=== PATIENT | female | born 1950 | race African-American/Black ===

== ENCOUNTER 2017-05-07 13:50 | Inpatient (IN) ==
[~2017-05-07 13:50] MED LIST: ACETAMINOPHEN 325 MG TABLET PO PRN; DEXTROSE 50% 25 GM/50 ML SYRINGE IV PRN; DOCUSATE SODIUM 100 MG CAPSULE PO PRN; GLUCAGON 1 MG VIAL IM PRN; ONDANSETRON 4 MG/2 ML VIAL IV PRN
--- NOTE | 2017-05-07 15:21 | XRay Report ---
Portable chest Date: 05/07/2017 Clinical history: Shortness of breath Comparison: 02/05/2012 Technique: Portable AP sitting chest Findings: The heart is normal in size cardiac fat pads. The lungs and mediastinum are stable in appearance. Degenerative changes are noted. Impression: No acute cardiopulmonary pathology identified. PROCEDURE INTERPRETED AT [facility] DEPARTMENT OF RADIOLOGY Final Report Signed by: Dr. Sahra Carson
[2017-05-07 15:40] LABS: Basophils % 0.2 % (0.0-0.8); Eosinophils # 0.1 10*3/uL (0.0-0.87); Eosinophils % 0.5 % (0.00-10.9); Hematocrit 39.5 VOL% (35.7-47.0); Hemoglobin 13.3 GM/DL (12.0-16.0); Immature Granulocytes % 0.5 %; Immature Granulocytes Absolute 0.08 #; Lymphocytes % 18.8 % (21.3-54.2); Mean Corpuscular HGB Conc 33.7 GM/DL (32-36); Mean Corpuscular Hemoglobin 32 PG (27-34); Mean Platelet Volume 9.6 FL (9.6-12.0); Monocytes # 0.8 10*3/uL (0.11-0.8); Monocytes % 5.2 % (1.7-12.7); Neutrophils % 74.8 % (38.7-73.9); Platelet Count 332 T/CUMM (130-400); Red Blood Count 4.16 MC/CUMM (3.8-5.5); Red Cell Distribution Width 13.5 % (9.3-17.3); White Blood Count 16.1 T/CUMM (4-12)
[2017-05-07 16:05] LABS: Alanine Aminotransferase 17 U/L (13-56); Albumin 3.4 G/DL (3.4-5.0); Alkaline Phosphatase 146 U/L (45-117); Aspartate Amino Transferase 10 U/L (0-37); Bilirubin,Total < 0.39 MG/DL (0.2-1.0); Blood Urea Nitrogen 31 MG/DL (7-18); Calcium 10.4 MG/DL (8.5-10.1); Glucose 340 MG/DL (74-106); Magnesium 2.5 MG/DL (1.8-2.4); Phosphorous 2.9 MG/DL (2.5-4.9); Potassium 3.9 MMOL/L (3.5-5.1); Sodium 136 MMOL/L (136-145); Total Protein 7.2 G/DL (6.4-8.3)
[2017-05-07] MEDS: SODIUM CHLORIDE 0.9% 1,000 ML IV SCH (16:13)
--- NOTE | 2017-05-07 17:44 | Hospitalist History & Physical ---
Assessment and Plan - Time spent with patient Time spent with patient: Greater than 30 minutes (1) Leukocytosis Status: Acute Assessment and plan: Patient has a leukocytosis. There is no fever or symptomatology to suggest infection at this time. Urinalysis currently pending. Chest x-ray is clear. Will await further data before making a decision on antibiotic therapy if needed. Will otherwise hydrate overnight and follow-up CBC in the a.m. Current Visit: Yes (2) Acute kidney injury Status: Acute Assessment and plan: Patient reportedly has acute kidney injury. I am unclear as to what her baseline is. Will avoid any nephrotoxic agents or insults. Will hydrate overnight and follow-up creatinine in the a.m. Current Visit: Yes (3) Diabetes mellitus Status: Chronic Assessment and plan: We will resume her home medical regimen with Accu-Cheks and sliding scale insulin. Current Visit: Yes Qualifiers: Diabetes mellitus type: type 2 (4) Foot fracture, right Status: Acute Assessment and plan: Continue pain control, elevation, fracture shoe as prescribed in the emergency department with outpatient follow-up with her primary care provider. Current Visit: No (5) Hypertension Status: Chronic Assessment and plan: Patient has a history of hypertension. She states her antihypertensive therapy was discontinued. She is currently hemodynamically stable. We will continue to follow. Current Visit: Yes Qualifiers: Hypertension type: essential hypertension Qualified Code(s): I10 - Essential (primary) hypertension History of Present Illness Chief complaint: Foot pain, high white count, acute kidney injury History of present illness: Ms. Rousseau is a 66 year old -[place] female who fell and was seen in the emergency department yesterday and noted to have a right distal metatarsal fracture. She was discharged home and told to follow-up with her primary care provider. She saw Dr. Marquez in the office today and apparently had a leukocytosis and acute kidney injury and was referred to the hospitalist service for admission. She states that she had had increasing falls and dizziness with standing. She denies any fever, chills, chest pain, shortness breath, nausea, vomiting, diarrhea, constipation, melena, hematochezia, hematemesis, dysuria, hematuria, urinary frequency urgency incontinence, seizure , syncope. She states that Dr. Marquez stopped her blood pressure pill today. She denies any other [id number] medications including nonsteroidal anti- inflammatory drugs. 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 Kranthi Rueda) Endocrine: History of: Diabetes Mellitus (NIDDM) Gastrointestinal: History of: GERD, GI Problems (hital hernia up so high close to heart, cant have surgery) - Surgical History Neurologic Surgeries: Surgical HX of: Cerebral Hemorrhage (AV malformtion with surgery [place] [address]ranthi Rueda) Abdominal Surgeries: Surgical HX of: Cholecystectomy Patient denies: Hernia Repair - Family History Family History: Reports;: Family Diabetes, Family Heart Disease (grandmother) Denies;: Family Cancer - Social History Smoking Status: Never smoker Frequency of Alcohol Use: None Type of Drug Use: None 12 point system: reviewed and no additional remarkable complaints except as stated Exam - Constitutional Vitals: Period Temp Pulse Resp BP Sys/Lucas Pulse Ox Last 24 Hr 97.3 F 102 18 129/78 98-98 General appearance: no acute distress - Head Head exam: Present: normocephalic, atraumatic - Eye Eye exam: Present: EOMI Pupils: Present: ROBERT - ENT ENT exam: Present: normal exam, normal oropharynx - Neck Neck exam: Present: normal inspection. Absent: lymphadenopathy, meningismus, tenderness, thyromegaly - Respiratory Respiratory exam: Present: clear to auscultation bilaterally. Absent: rales, rhonchi, wheezes - Cardiovascular Cardiovascular exam: Present: regular rate and rhythm, tachycardia. Absent: gallop, JVD, systolic murmur - GI/Abdominal GI/Abdominal exam: Present: normal bowel sounds, soft. Absent: mass, organomegaly, tenderness, rebound - Extremities Exam Extremities exam: Present: normal capillary refill, other (Tender swollen right foot). Absent: calf tenderness, edema - Back Exam Back exam: Present: normal inspection - Neurological Exam Neurological exam: Present: alert, oriented X3, CN II-XII intact. Absent: motor sensory deficit - Psychiatric Psychiatric exam: Present: normal affect, normal mood. Absent: agitated, anxious - Skin Skin exam: Present: warm, dry. Absent: erythema, rash Results - Labs CBC & BMP: 05/07/17 15:25 05/07/17 15:25 Lab Results: I have reviewed the past 24 hour labs - EKG EKG shows: tachycardia, sinus rhythm - Diagnostic Findings Procedure: Chest x-ray: report reviewed by me
[2017-05-07] MEDS: INSULIN LISPRO 100 UNIT/ML SUBCUT SCH (17:53)
[2017-05-07 20:15] LABS: Apearance,Urine CLEAR (Clear); Bacteria,Urine Occasional /HPF (Few); Bilirubin,Urine Negative (Negative); Blood, Urine Negative (Negative); Glucose,Urine (UA) >=500 mg/dL (Negative); Ketones,Urine 5 mg/dL (Negative); Mucus,Urine Occasional /LPF (Occasional); Nitrite,Urine Negative (Negative); Protein,Urine Negative; RBC,Urine 1 /HPF (0-4); Squamous Epithelial Cell,Urine Occasional /HPF (0-10); Urine Color Yellow (Yellow); Urine Specific Gravity 1.025 (1.001-1.035); Urine Urobilinogen < 2.0 EU/DL (0.2-1.0); WBC,Urine 4 /HPF (0-6)
[2017-05-07] MEDS: AMITRIPTYLINE 75 MG TABLET PO SCH (22:00)
[2017-05-07] MEDS: INSULIN GLARGINE 100 UNIT/ML SUBCUT SCH (22:00)
[2017-05-08] MEDS: INSULIN LISPRO 100 UNIT/ML SUBCUT SCH ×7 (01:41→18:00)
[2017-05-08 07:19] LABS: Basophils % 0.3 % (0.0-0.8); Eosinophils # 0.3 10*3/uL (0.0-0.87); Eosinophils % 1.9 % (0.00-10.9); Hemoglobin 11.5 GM/DL (12.0-16.0); Immature Granulocytes % 0.4 %; Immature Granulocytes Absolute 0.05 #; Lymphocytes # 3.7 10*3/uL (1.4-4.0); Lymphocytes % 28.6 % (21.3-54.2); Mean Corpuscular HGB Conc 32.9 GM/DL (32-36); Mean Corpuscular Hemoglobin 31 PG (27-34); Mean Corpuscular Volume 95.1 FL (87-102); Mean Platelet Volume 9.8 FL (9.6-12.0); Monocytes # 0.9 10*3/uL (0.11-0.8); Neutrophils # 7.9 10*3/uL (1.4-7.4); Neutrophils % 61.8 % (38.7-73.9); Platelet Count 285 T/CUMM (130-400); Red Blood Count 3.68 MC/CUMM (3.8-5.5); Red Cell Distribution Width 13.4 % (9.3-17.3); White Blood Count 12.9 T/CUMM (4-12)
[2017-05-08 07:46] LABS: Calcium 8.7 MG/DL (8.5-10.1); Osmolality,Calculated 289.1 MOS/KG (273-304); Potassium 3.9 MMOL/L (3.5-5.1)
--- NOTE | 2017-05-08 08:09 | XRay Report ---
XR chest 1V portable Indication: COPD Comparison: 07 May 2017 Findings: The heart and mediastinum are normal in size and configuration. The pulmonary vascularity is normal in caliber. No lung infiltrates, effusions, pneumothorax or other abnormality is demonstrated. Impression: No acute cardiopulmonary findings. PROCEDURE INTERPRETED AT [facility] [place] DEPARTMENT OF RADIOLOGY Final Report Signed by: Dr. Dm Ruano
[2017-05-08] MEDS: PANTOPRAZOLE 40 MG TABLET PO SCH (10:22)
--- NOTE | 2017-05-08 12:33 | Case Mgmt Physician Query Form ---
TB Signs and Symptoms Screening ([place]) INSTRUCTIONS: To be completed annually on residents/staff with a significant Tuberculin Skin Test (TST) upon admission/hire or a prior significant TST. To be completed on all staff at hire. Please respond to each listed symptom with an (X) in either the "YES" or "NO" box. Do you currently have any of the following symptoms: YES NO ( ) (x ) A cough If yes, is it: ( ) Productive ( ) Non- productive ( ) x( ) Hemoptysis (spitting up blood) ( ) (x ) Chest pains ( ) (x ) Weight Loss ( ) (x ) Fever ( ) (x ) Night Sweats ( ) (x ) Weakness ( ) (x ) Loss of Appetite ( ) (x ) Difficulty Breathing If you answered YES" to any of the above questions, how long have symptoms been present? Comments: EDGARD
[2017-05-08] MEDS ORDERED: TUBERCULIN SKIN TEST 0.1 ML SYRINGE INTRADERM ONE (12:48)
--- NOTE | 2017-05-08 14:07 | Hospitalist Progress Note ---
Assessment and Plan (1) Leukocytosis Status: Acute Assessment and plan: There is no fever or symptomatology to suggest infection at this time. Follow UC and BC Current Visit: Yes (2) Acute kidney injury Status: Acute Assessment and plan: continue with IVF, bmp in am avoid nephrotoxics Current Visit: Yes (3) Diabetes mellitus Status: Chronic Assessment and plan: [id number] Continue current regime Current Visit: Yes Qualifiers: Diabetes mellitus type: type 2 (4) Foot fracture, right Status: Acute Assessment and plan: Continue pain control, elevation, fracture shoe as prescribed in the emergency department with outpatient follow-up with her primary care provider. Current Visit: No (5) Hypertension Status: Chronic Assessment and plan: stable Current Visit: Yes Qualifiers: Hypertension type: essential hypertension Qualified Code(s): I10 - Essential (primary) hypertension (6) Debility Status: Acute Assessment and plan: will get PT consult. Case manger working on possible swing bed disposition Current Visit: Yes Hospitalist: Subjective Interval history: Patient seen today. No new issues overnight. Exam - Constitutional Vitals: Period Temp Pulse Resp BP Sys/Lucas Pulse Ox Last 24 Hr 96.7 F-97.5 F 88-103 16-18 118-131/55-78 93-98 General appearance: no acute distress - Head Head exam: Present: normal inspection - Respiratory Respiratory exam: Present: clear to auscultation bilaterally - Cardiovascular Cardiovascular exam: Present: regular rate and rhythm - GI/Abdominal GI/Abdominal exam: Present: normal bowel sounds - Extremities Exam Extremities exam: Present: normal inspection - Neurological Exam Neurological exam: Present: alert, oriented X3 Results - Labs CBC & BMP: 05/08/17 06:29 05/08/17 06:29 Lab Results: I have reviewed the past 24 hour labs
[2017-05-08] MEDS: ENOXAPARIN 40 MG/0.4 ML SYRINGE SUBCUT SCH (16:18)
[2017-05-08] MEDS: SODIUM CHLORIDE 0.9% 1,000 ML IV SCH (19:55)
[2017-05-08] MEDS: AMITRIPTYLINE 75 MG TABLET PO SCH (21:42)
[2017-05-08] MEDS: INSULIN GLARGINE 100 UNIT/ML SUBCUT SCH (21:44)
[2017-05-08 22:10] LABS: Apearance,Urine Slightly Hazy (Clear); Bacteria,Urine Few /HPF (Few); Bilirubin,Urine Negative (Negative); Blood, Urine Negative (Negative); Glucose,Urine (UA) >=500 mg/dL (Negative); Ketones,Urine Negative (Negative); Mucus,Urine Occasional /LPF (Occasional); Nitrite,Urine Negative (Negative); Protein,Urine Negative; RBC,Urine 2 /HPF (0-4); Squamous Epithelial Cell,Urine Occasional /HPF (0-10); Urine Color Yellow (Yellow); Urine Specific Gravity 1.012 (1.001-1.035); Urine Urobilinogen < 2.0 EU/DL (0.2-1.0); WBC,Urine 6 /HPF (0-6)
[2017-05-09 05:53] LABS: Basophils % 0.3 % (0.0-0.8); Eosinophils # 0.2 10*3/uL (0.0-0.87); Eosinophils % 2.5 % (0.00-10.9); Hematocrit 33.3 VOL% (35.7-47.0); Hemoglobin 11.2 GM/DL (12.0-16.0); Immature Granulocytes % 0.4 %; Immature Granulocytes Absolute 0.04 #; Lymphocytes # 4.6 10*3/uL (1.4-4.0); Lymphocytes % 47.1 % (21.3-54.2); Mean Corpuscular HGB Conc 33.6 GM/DL (32-36); Mean Corpuscular Hemoglobin 32 PG (27-34); Mean Corpuscular Volume 94.1 FL (87-102); Mean Platelet Volume 9.5 FL (9.6-12.0); Monocytes # 0.7 10*3/uL (0.11-0.8); Monocytes % 6.7 % (1.7-12.7); Neutrophils # 4.2 10*3/uL (1.4-7.4); Platelet Count 271 T/CUMM (130-400); Red Blood Count 3.54 MC/CUMM (3.8-5.5); Red Cell Distribution Width 13.2 % (9.3-17.3); White Blood Count 9.7 T/CUMM (4-12)
[2017-05-09] MEDS: INSULIN LISPRO 100 UNIT/ML SUBCUT SCH ×7 (06:00→17:39)
[2017-05-09 06:43] LABS: Calcium 9.3 MG/DL (8.5-10.1); Osmolality,Calculated 287.1 MOS/KG (273-304); Potassium 4.1 MMOL/L (3.5-5.1)
[2017-05-09] MEDS: SODIUM CHLORIDE 0.9% 1,000 ML IV SCH (10:14)
[2017-05-09] MEDS: PANTOPRAZOLE 40 MG TABLET PO SCH (10:16)
--- NOTE | 2017-05-09 13:09 | Case Mgmt Physician Query Form ---
TB Signs and Symptoms Screening ([place]) INSTRUCTIONS: To be completed annually on residents/staff with a significant Tuberculin Skin Test (TST) upon admission/hire or a prior significant TST. To be completed on all staff at hire. Please respond to each listed symptom with an (X) in either the "YES" or "NO" box. Do you currently have any of the following symptoms: YES NO ( ) (x ) A cough If yes, is it: ( ) Productive ( ) Non- productive ( ) ( x) Hemoptysis (spitting up blood) ( ) (x ) Chest pains ( ) (x ) Weight Loss ( ) x( ) Fever ( ) (x ) Night Sweats ( ) (x ) Weakness ( ) (x ) Loss of Appetite ( ) (x ) Difficulty Breathing If you answered YES" to any of the above questions, how long have symptoms been present? Comments: EDGARD
--- NOTE | 2017-05-09 13:40 | Hospitalist Progress Note ---
Assessment and Plan (1) Leukocytosis Status: Acute Assessment and plan: Improved. There is no fever or symptomatology to suggest infection at this time.UC-negative Follow BC Current Visit: Yes (2) Acute kidney injury Status: Acute Assessment and plan: improved avoid nephrotoxics, dc IVF Current Visit: Yes (3) Diabetes mellitus Status: Chronic Assessment and plan: [id number] Continue current regime Current Visit: Yes Qualifiers: Diabetes mellitus type: type 2 (4) Foot fracture, right Status: Acute Assessment and plan: Continue pain control, elevation, fracture shoe as prescribed in the emergency department with outpatient follow-up with her primary care provider. Current Visit: No (5) Hypertension Status: Chronic Assessment and plan: start norvasc 5mg daily, follow response DC IVF Current Visit: Yes Qualifiers: Hypertension type: essential hypertension Qualified Code(s): I10 - Essential (primary) hypertension (6) Debility Status: Acute Assessment and plan: continue PT consult. Case manger working on possible swing bed disposition Current Visit: Yes Hospitalist: Subjective Interval history: Patient was sleeping. No new issues. DC planning in progress Exam - Constitutional Vitals: Period Temp Pulse Resp BP Sys/Lucas Pulse Ox Last 24 Hr 96.4 F-98.5 F 88-101 16-20 123-179/56-88 95-99 General appearance: no acute distress - Head Head exam: Present: normal inspection - Respiratory Respiratory exam: Present: clear to auscultation bilaterally - Cardiovascular Cardiovascular exam: Present: regular rate and rhythm - GI/Abdominal GI/Abdominal exam: Present: normal bowel sounds - Extremities Exam Extremities exam: Present: normal inspection - Neurological Exam Neurological exam: Present: alert, oriented X3 Results - Labs CBC & BMP: 05/09/17 05:26 05/09/17 05:26 Lab Results: I have reviewed the past 24 hour labs
[2017-05-09] MEDS: ENOXAPARIN 40 MG/0.4 ML SYRINGE SUBCUT SCH (15:16)
[2017-05-09] MEDS: amLODIPine 5 MG TABLET PO SCH (15:17)
[2017-05-09] MEDS: INSULIN GLARGINE 100 UNIT/ML SUBCUT SCH (21:01)
[2017-05-09] MEDS: AMITRIPTYLINE 75 MG TABLET PO SCH (21:01)
[2017-05-10] MEDS: INSULIN LISPRO 100 UNIT/ML SUBCUT SCH ×8 (06:00→21:09)
[2017-05-10 07:05] LABS: Basophils % 0.4 % (0.0-0.8); Eosinophils # 0.3 10*3/uL (0.0-0.87); Eosinophils % 3.2 % (0.00-10.9); Hematocrit 36.2 VOL% (35.7-47.0); Hemoglobin 12.1 GM/DL (12.0-16.0); Immature Granulocytes % 0.5 %; Immature Granulocytes Absolute 0.05 #; Lymphocytes # 4.2 10*3/uL (1.4-4.0); Lymphocytes % 44.3 % (21.3-54.2); Mean Corpuscular HGB Conc 33.4 GM/DL (32-36); Mean Corpuscular Hemoglobin 31 PG (27-34); Mean Corpuscular Volume 93.5 FL (87-102); Mean Platelet Volume 9.6 FL (9.6-12.0); Monocytes # 0.6 10*3/uL (0.11-0.8); Neutrophils # 4.3 10*3/uL (1.4-7.4); Neutrophils % 45.6 % (38.7-73.9); Platelet Count 346 T/CUMM (130-400); Red Blood Count 3.87 MC/CUMM (3.8-5.5); Red Cell Distribution Width 13.2 % (9.3-17.3); White Blood Count 9.4 T/CUMM (4-12)
[2017-05-10 07:27] LABS: Calcium 9.5 MG/DL (8.5-10.1); Osmolality,Calculated 284.8 MOS/KG (273-304); Potassium 3.9 MMOL/L (3.5-5.1)
[2017-05-10] MEDS: amLODIPine 5 MG TABLET PO SCH ×2 (09:01→21:09)
[2017-05-10] MEDS: PANTOPRAZOLE 40 MG TABLET PO SCH (09:01)
--- NOTE | 2017-05-10 10:25 | Hospitalist Progress Note ---
Assessment and Plan (1) Leukocytosis Status: Acute Assessment and plan: Improved. There is no fever or symptomatology to suggest infection at this time.UC and BC- negative Current Visit: Yes (2) Acute kidney injury Status: Acute Assessment and plan: improved continue to avoid nephrotoxics Current Visit: Yes (3) Diabetes mellitus Status: Chronic Assessment and plan: [id number] Continue current regime Current Visit: Yes Qualifiers: Diabetes mellitus type: type 2 (4) Foot fracture, right Status: Acute Assessment and plan: Continue pain control, elevation, fracture shoe as prescribed in the emergency department with outpatient follow-up with her primary care provider. Current Visit: No (5) Hypertension Status: Chronic Assessment and plan: increase norvasc to 5mg bid, follow response Current Visit: Yes Qualifiers: Hypertension type: essential hypertension Qualified Code(s): I10 - Essential (primary) hypertension (6) Debility Status: Acute Assessment and plan: continue PT consult. Case manger working on possible swing bed disposition Current Visit: Yes Hospitalist: Subjective Interval history: 66yr old who recently had a right distal metatarsal fracture and was discharged home from the ER, was sent from Dr Ortiz's office for evaluation of SHAHLA and leukocytosis. All these have improved and we are currently waiting for a swing bed placement. Possibly tomorrow.No new complaints. Exam - Constitutional Vitals: Period Temp Pulse Resp BP Sys/Lucas Pulse Ox Last 24 Hr 96.4 F-98.3 F 60-103 16-20 136-179/63-99 91-97 General appearance: no acute distress - Head Head exam: Present: normal inspection - Respiratory Respiratory exam: Present: clear to auscultation bilaterally - GI/Abdominal GI/Abdominal exam: Present: normal bowel sounds - Extremities Exam Extremities exam: Present: normal inspection - Neurological Exam Neurological exam: Present: alert, oriented X3 Results - Labs CBC & BMP: 05/10/17 06:17 05/10/17 06:17 Lab Results: I have reviewed the past 24 hour labs
[2017-05-10] MEDS: ENOXAPARIN 40 MG/0.4 ML SYRINGE SUBCUT SCH (14:34)
[2017-05-10] MEDS: INSULIN GLARGINE 100 UNIT/ML SUBCUT SCH (21:08)
[2017-05-10] MEDS: AMITRIPTYLINE 75 MG TABLET PO SCH (21:09)
[2017-05-11] MEDS: INSULIN LISPRO 100 UNIT/ML SUBCUT SCH ×7 (09:12→22:07)
[2017-05-11] MEDS: PANTOPRAZOLE 40 MG TABLET PO SCH (09:12)
[2017-05-11] MEDS: amLODIPine 5 MG TABLET PO SCH ×2 (09:13→22:08)
--- NOTE | 2017-05-11 15:45 | Hospitalist Progress Note ---
Assessment and Plan - Time spent with patient Time spent with patient: Greater than 30 minutes (Pt is new to me. I reviewed pt 's lab results today.) (1) Leukocytosis Status: Acute Assessment and plan: Resolved. Afebrile. Cultures are negative. Current Visit: Yes (2) Acute kidney injury Status: Acute Assessment and plan: Improving. BMP in am. Current Visit: Yes (3) Hypertension Status: Chronic Assessment and plan: Continue home meds. Current Visit: Yes Qualifiers: Hypertension type: essential hypertension Qualified Code(s): I10 - Essential (primary) hypertension (4) Diabetes mellitus Status: Chronic Assessment and plan: Continue current treatment plan. Current Visit: Yes Qualifiers: Diabetes mellitus type: type 2 (5) Foot fracture, right Status: Acute Assessment and plan: Pain management. PT f/u Current Visit: No (6) Debility Status: Acute Assessment and plan: PT f/u. May need swing bed? Current Visit: Yes Hospitalist: Subjective Interval history: No overnight acute event. Afebrile. WBC trending down. GFR improving. Can eat. Cultures negative. Exam - Constitutional Vitals: Period Temp Pulse Resp BP Sys/Lucas Pulse Ox Last 24 Hr 97.2 F-98.8 F 84-121 16-20 127-149/68-78 93-97 Exam: General: Sitting in chair. AAOx3 HEENT: NT AC EOMI Normal lips and gum Lungs: B/L CTA Heart: +S1/S2, RRR Abd: +BS, NT ND Neuro: AAOx3 Results - Labs CBC & BMP: 05/10/17 06:17 05/10/17 06:17
[2017-05-11] MEDS: ENOXAPARIN 40 MG/0.4 ML SYRINGE SUBCUT SCH (15:49)
[2017-05-11] MEDS: AMITRIPTYLINE 75 MG TABLET PO SCH (22:08)
[2017-05-11] MEDS: INSULIN GLARGINE 100 UNIT/ML SUBCUT SCH (22:15)
[2017-05-12 02:33] LABS: Basophils # 0.1 10*3/uL (0.0-0.2); Basophils % 0.4 % (0.0-0.8); Eosinophils # 0.3 10*3/uL (0.0-0.87); Eosinophils % 2.4 % (0.00-10.9); Hematocrit 35.4 VOL% (35.7-47.0); Hemoglobin 11.7 GM/DL (12.0-16.0); Immature Granulocytes % 0.6 %; Immature Granulocytes Absolute 0.07 #; Lymphocytes % 41.7 % (21.3-54.2); Mean Corpuscular HGB Conc 33.1 GM/DL (32-36); Mean Corpuscular Hemoglobin 31 PG (27-34); Mean Corpuscular Volume 93.9 FL (87-102); Mean Platelet Volume 9.6 FL (9.6-12.0); Monocytes # 0.9 10*3/uL (0.11-0.8); Monocytes % 7.5 % (1.7-12.7); Neutrophils # 5.7 10*3/uL (1.4-7.4); Neutrophils % 47.4 % (38.7-73.9); Platelet Count 330 T/CUMM (130-400); Red Blood Count 3.77 MC/CUMM (3.8-5.5); Red Cell Distribution Width 13.5 % (9.3-17.3); White Blood Count 11.9 T/CUMM (4-12)
[2017-05-12 02:56] LABS: Albumin 2.7 G/DL (3.4-5.0); Bilirubin,Total 0.5 MG/DL (0.2-1.0); Calcium 9.3 MG/DL (8.5-10.1); Magnesium 2.1 MG/DL (1.8-2.4); Osmolality,Calculated 282.4 MOS/KG (273-304); Phosphorous 2.9 MG/DL (2.5-4.9); Potassium 4.3 MMOL/L (3.5-5.1)
--- NOTE | 2017-05-12 09:36 | Hospitalist Progress Note ---
Assessment and Plan (1) Acute kidney injury Status: Acute Assessment and plan: Renal function has improved greatly. BUN noted at 15 and creatinine at 1.20. We will continue to avoid all nephrotoxic agents. We will provide supportive care. Current Visit: Yes (2) Debility Status: Acute Assessment and plan: Case management has made referral for possible swing bed placement. We are awaiting approval for acceptance. Current Visit: Yes (3) Foot fracture, right Status: Acute Assessment and plan: We will continue pain control, elevation, and fracture shoe as previously ordered. Current Visit: No Hospitalist: Subjective Interval history: Patient seen and examined. No significant overnight events reported. Awaiting swing bed placement. Exam - Constitutional Vitals: Period Temp Pulse Resp BP Sys/Lucas Pulse Ox Last 24 Hr 97.0 F-99.1 F 94-121 18-22 125-149/55-89 93-99 General appearance: normal weight, no acute distress - Head Head exam: Present: normal inspection, normocephalic - Eye Eye exam: Present: EOMI, conjunctival injection Pupils: Present: ROBERT, normal accommodation - ENT ENT exam: Present: normal exam, normal external ear exam, normal oropharynx - Neck Neck exam: Present: normal inspection. Absent: lymphadenopathy, meningismus, thyromegaly - Respiratory Respiratory exam: Present: clear to auscultation bilaterally. Absent: rales, rhonchi, stridor, wheezes - Cardiovascular Cardiovascular exam: Present: regular rate and rhythm. Absent: carotid bruit, diastolic murmur, JVD, rubs, tachycardia - GI/Abdominal GI/Abdominal exam: Present: normal bowel sounds, soft - Extremities Exam Extremities exam: Present: normal inspection, normal capillary refill, other ( Lower extremity immobilizer noted to right lower extremity secondary to right distal metatarsal fracture.) - Back Exam Back exam: Present: normal inspection - Neurological Exam Neurological exam: Present: alert, oriented X3, CN II-XII intact - Psychiatric Psychiatric exam: Present: normal affect, normal mood - Skin Skin exam: Present: normal color, warm, dry Results - Labs CBC & BMP: 05/12/17 01:32 05/12/17 01:32 Lab Results: I have reviewed the past 24 hour labs
[2017-05-12] MEDS: INSULIN LISPRO 100 UNIT/ML SUBCUT SCH ×7 (09:43→22:23)
[2017-05-12] MEDS: PANTOPRAZOLE 40 MG TABLET PO SCH (09:45)
[2017-05-12] MEDS: amLODIPine 5 MG TABLET PO SCH ×2 (09:45→22:10)
[2017-05-12] MEDS: ENOXAPARIN 40 MG/0.4 ML SYRINGE SUBCUT SCH (15:42)
[2017-05-12] MEDS: AMITRIPTYLINE 75 MG TABLET PO SCH (22:09)
[2017-05-12] MEDS: INSULIN GLARGINE 100 UNIT/ML SUBCUT SCH (22:21)
[2017-05-13] MEDS: INSULIN LISPRO 100 UNIT/ML SUBCUT SCH ×7 (09:35→20:53)
[2017-05-13] MEDS: amLODIPine 5 MG TABLET PO SCH ×2 (09:36→20:52)
[2017-05-13] MEDS: PANTOPRAZOLE 40 MG TABLET PO SCH (09:36)
--- NOTE | 2017-05-13 12:10 | Hospitalist Progress Note ---
Assessment and Plan (1) Foot fracture, right Status: Acute Assessment and plan: Recuperating in hearing. Current Visit: No (2) Hypertension Status: Chronic Assessment and plan: This well controlled continue medications Current Visit: Yes Qualifiers: Hypertension type: essential hypertension Qualified Code(s): I10 - Essential (primary) hypertension (3) Diabetes mellitus Status: Chronic Assessment and plan: Relatively well-controlled continue current medications and care Current Visit: Yes Qualifiers: Diabetes mellitus type: type 2 (4) Acute kidney injury Status: Acute Current Visit: Yes (5) Debility Status: Acute Assessment and plan: Last creatinine is 1.2. Current Visit: Yes Hospitalist: Subjective Interval history: Patient has been seen interviewed and examined and chart has been reviewed. She is a just awaiting placement at [facility]. No new complaints Exam - Constitutional Vitals: Period Temp Pulse Resp BP Sys/Lucas Pulse Ox Last 24 Hr 97.1 F-98.6 F 90-99 17-20 121-151/61-84 95-96 General appearance: over weight - Head Head exam: Present: normocephalic, atraumatic - Eye Eye exam: Present: EOMI Pupils: Present: ROBERT - Respiratory Respiratory exam: Present: clear to auscultation bilaterally - Cardiovascular Cardiovascular exam: Present: regular rate and rhythm - Extremities Exam Extremities exam: Present: other (Generalized debility.) - Neurological Exam Neurological exam: Present: alert, oriented X3, CN II-XII intact - Psychiatric Psychiatric exam: Present: normal affect, normal mood - Skin Skin exam: Present: normal color, warm, dry Results - Labs CBC & BMP: 05/12/17 01:32 05/12/17 01:32 Lab Results: I have reviewed the past 24 hour labs
[2017-05-13] MEDS: ENOXAPARIN 40 MG/0.4 ML SYRINGE SUBCUT SCH (14:35)
[2017-05-13] MEDS: INSULIN GLARGINE 100 UNIT/ML SUBCUT SCH (20:52)
[2017-05-13] MEDS: AMITRIPTYLINE 75 MG TABLET PO SCH (20:52)
[2017-05-14] MEDS: INSULIN LISPRO 100 UNIT/ML SUBCUT SCH ×7 (08:35→21:07)
[2017-05-14] MEDS: PANTOPRAZOLE 40 MG TABLET PO SCH (08:37)
[2017-05-14] MEDS: amLODIPine 5 MG TABLET PO SCH ×2 (08:37→21:08)
--- NOTE | 2017-05-14 14:18 | Hospitalist Progress Note ---
Assessment and Plan (1) Foot fracture, right Status: Inactive Assessment and plan: Recuperating in hearing. Current Visit: No (2) Hypertension Status: Chronic Assessment and plan: This well controlled continue medications Current Visit: Yes Qualifiers: Hypertension type: essential hypertension Qualified Code(s): I10 - Essential (primary) hypertension (3) Diabetes mellitus Status: Chronic Assessment and plan: Relatively well-controlled continue current medications and care Current Visit: Yes Qualifiers: Diabetes mellitus type: type 2 (4) Acute kidney injury Status: Acute Current Visit: Yes (5) Debility Status: Acute Assessment and plan: PT OT to be involved Current Visit: Yes Hospitalist: Subjective Interval history: Patient has been seen interviewed and examined and chart has been reviewed. She was slated for discharge to facility today but they are not yet confirmed that. Insurance is given no okay for this to be at goal. Patient will therefore be here. Review the situation again tomorrow Exam - Constitutional Vitals: Period Temp Pulse Resp BP Sys/Lucas Pulse Ox Last 24 Hr 97.0 F-98.9 F 76-104 18-21 119-155/60-82 92-98 General appearance: no acute distress, over weight - Head Head exam: Present: normocephalic - Eye Eye exam: Present: EOMI Pupils: Present: ROBERT - ENT ENT exam: Present: normal exam - Neck Neck exam: Present: normal inspection - Respiratory Respiratory exam: Present: clear to auscultation bilaterally - Cardiovascular Cardiovascular exam: Present: regular rate and rhythm - GI/Abdominal GI/Abdominal exam: Present: normal bowel sounds, soft - Extremities Exam Extremities exam: Present: other (Slow to transfer history of fractured right foot) - Neurological Exam Neurological exam: Present: alert, oriented X3, CN II-XII intact - Psychiatric Psychiatric exam: Present: normal affect, normal mood - Skin Skin exam: Present: normal color, warm, dry Results - Labs CBC & BMP: 05/12/17 01:32 05/12/17 01:32
[2017-05-14] MEDS: ENOXAPARIN 40 MG/0.4 ML SYRINGE SUBCUT SCH (14:42)
[2017-05-14] MEDS: AMITRIPTYLINE 75 MG TABLET PO SCH (21:08)
[2017-05-14] MEDS: INSULIN GLARGINE 100 UNIT/ML SUBCUT SCH (22:19)
[2017-05-15 05:04] LABS: Basophils % 0.3 % (0.0-0.8); Eosinophils # 0.3 10*3/uL (0.0-0.87); Eosinophils % 2.4 % (0.00-10.9); Hematocrit 37.8 VOL% (35.7-47.0); Hemoglobin 12.5 GM/DL (12.0-16.0); Immature Granulocytes % 0.8 %; Immature Granulocytes Absolute 0.09 #; Lymphocytes # 3.8 10*3/uL (1.4-4.0); Mean Corpuscular HGB Conc 33.1 GM/DL (32-36); Mean Corpuscular Hemoglobin 31 PG (27-34); Mean Corpuscular Volume 94.3 FL (87-102); Mean Platelet Volume 9.8 FL (9.6-12.0); Monocytes # 0.9 10*3/uL (0.11-0.8); Monocytes % 7.8 % (1.7-12.7); Neutrophils # 5.9 10*3/uL (1.4-7.4); Neutrophils % 53.7 % (38.7-73.9); Platelet Count 369 T/CUMM (130-400); Red Blood Count 4.01 MC/CUMM (3.8-5.5); Red Cell Distribution Width 13.7 % (9.3-17.3); White Blood Count 10.9 T/CUMM (4-12)
[2017-05-15 05:29] LABS: Calcium 9.7 MG/DL (8.5-10.1); Magnesium 2.5 MG/DL (1.8-2.4); Osmolality,Calculated 284.4 MOS/KG (273-304); Potassium 4.6 MMOL/L (3.5-5.1)
[2017-05-15] MEDS: INSULIN LISPRO 100 UNIT/ML SUBCUT SCH ×4 (09:39→14:44)
[2017-05-15] MEDS: amLODIPine 5 MG TABLET PO SCH (09:40)
[2017-05-15] MEDS: PANTOPRAZOLE 40 MG TABLET PO SCH (09:41)
--- NOTE | 2017-05-15 10:31 | Discharge Summary ---
Diagnosis - Discharge Diagnosis (1) Foot fracture, right Status: Inactive (2) Hypertension Status: Chronic (3) Diabetes mellitus Status: Chronic (4) Acute kidney injury Status: Acute (5) Debility Status: Acute Discharge Plan - Discharge Data Disposition: Home Health Service Condition at Discharge: Stable Discharge Diet: diabetic diet, heart healthy Activity: increase activity as tolerated Hygiene: may tub bathe, other (With assistance as needed) Weight Bearing at Discharge: weight bear as tolerated Driving: other (Driving not expected) Contact your physician if you experience:: fever over 101, Nausea/Vomiting, Shortness of breath, pain uncontrolled by pain medications - Discharge Medications New amLODIPine [Norvasc] 5 mg PO BID #30 tablet Pantoprazole Tab [Protonix Tab] 40 mg PO DAILY #30 tablet Continue Amitriptyline [Elavil] 150 mg PO BEDTIME Insulin Detemir [Levemir] 32 unit SUBCUT BEDTIME Insulin Aspart [NovoLOG] 12 unit SUBCUT TID W/MEALS - Follow Up or Referral Follow Up: Billie Marquez M.D. [Primary Care Provider] - 1 Week - Forms/Instructions Exam - Constitutional Vitals: Period Temp Pulse Resp BP Sys/Lucas Pulse Ox Last 24 Hr 97.3 F-99.4 F 97-110 12-22 104-142/52-78 92-96 General appearance: over weight - Head Head exam: Present: normocephalic, atraumatic - Eye Eye exam: Present: EOMI Pupils: Present: ROBERT - Respiratory Respiratory exam: Present: clear to auscultation bilaterally - Cardiovascular Cardiovascular exam: Present: regular rate and rhythm - GI/Abdominal GI/Abdominal exam: Present: normal bowel sounds, soft - Extremities Exam Extremities exam: Present: full ROM, other (Patient does have a history of right foot fracture will walk on it can get out of bed to walk around the bed get back in bed without any limitations and get to the bathroom with assistance and I encouraged taking a bath instead of a shower for fear of falling) - Neurological Exam Neurological exam: Present: alert, oriented X3, CN II-XII intact - Psychiatric Psychiatric exam: Present: normal affect, normal mood - Skin Skin exam: Present: normal color, warm, dry Discharge Results Labs on day of discharge: Labs from last 24 hours 05/15/17 05/15/17 05/15/17 07:34 04:36 04:36 WBC 10.9 RBC 4.01 Hgb 12.5 Hct 37.8 MCV 94.3 MCH 31 MCHC 33.1 RDW 13.7 Plt Count 369 MPV 9.8 Neut % (Auto) 53.7 Lymph % (Auto) 35.0 Stanley % (Auto) 7.8 Eos % (Auto) 2.4 Baso % (Auto) 0.3 Neut # (Auto) 5.9 Lymph # (Auto) 3.8 Stanley # (Auto) 0.9 H Eos # (Auto) 0.3 Baso # (Auto) 0.0 Immature Gran % 0.8 Nucleated RBC % 0.0 Immature Gran # 0.09 Nucleated RBCs # 0.00 Immature Plt Fraction 0.0 Sodium 140 Potassium 4.6 Chloride 106 Carbon Dioxide 30 Anion Gap 8.6 BUN 18 Creatinine 1.20 H GFR Calculation 55 BUN/Creatinine Ratio 15.00 Glucose 171 H POC Glucose 207 H Calculated Osmolality 284.4 Calcium 9.7 Magnesium 2.5 H 05/14/17 05/14/17 05/14/17 21:41 20:11 15:54 WBC RBC Hgb Hct MCV MCH MCHC RDW Plt Count MPV Neut % (Auto) Lymph % (Auto) Stanley % (Auto) Eos % (Auto) Baso % (Auto) Neut # (Auto) Lymph # (Auto) Stanley # (Auto) Eos # (Auto) Baso # (Auto) Immature Gran % Nucleated RBC % Immature Gran # Nucleated RBCs # Immature Plt Fraction Sodium Potassium Chloride Carbon Dioxide Anion Gap BUN Creatinine GFR Calculation BUN/Creatinine Ratio Glucose POC Glucose 144 H 54 L 212 H Calculated Osmolality Calcium Magnesium 05/14/17 11:17 WBC RBC Hgb Hct MCV MCH MCHC RDW Plt Count MPV Neut % (Auto) Lymph % (Auto) Stanley % (Auto) Eos % (Auto) Baso % (Auto) Neut # (Auto) Lymph # (Auto) Stanley # (Auto) Eos # (Auto) Baso # (Auto) Immature Gran % Nucleated RBC % Immature Gran # Nucleated RBCs # Immature Plt Fraction Sodium Potassium Chloride Carbon Dioxide Anion Gap BUN Creatinine GFR Calculation BUN/Creatinine Ratio Glucose POC Glucose 167 H Calculated Osmolality Calcium Magnesium DS: Provider Date of admission: 05/09/17 14:39 Primary care physician: Billie Marquez M.D. Attending physician on admission: Laura Bustamante MD Consults: 05/08/17 10:23 Consult to Occupational Therapy [CONS] Routine Reason for Occupational Therapy: Weakness Consult to Physical Therapy [CONS] Routine Reason for Physical Therapy: Ambulation 05/08/17 10:25 Consult to Case Mgmt/Social Srvs [CONS] Routine Reason for Case Mgmt/Social Srvs: Discharge Planning Consult Comment: home health with pt ot 05/08/17 12:49 Consult to Physical Therapy [CONS] Routine Reason for Physical Therapy: Ambulation Discharging clinician: Quentin Calvo MD
[2017-05-15 12:18] VITALS: BP 123/74
== END 2017-05-15 13:00 | disposition home health service (06) | DRG 684 ==
LOC: N.2E 14:38 → INTOOBSV 14:38 → SUATTDRO 14:38 → N.2E 05-15 14:29
PROVIDERS: ADMIT Internal Medicine; ATTEND Internal Medicine Infectious Disease

== ENCOUNTER 2020-05-29 10:23 | Observation (INO) ==
[2020-05-29] MEDS ORDERED: SODIUM CHLORIDE 0.9% 1,000 ML IV STA (10:45)
[2020-05-29 11:05] LABS: Basophils % 0.3 % (0.0-0.8); Eosinophils # 0.3 10*3/uL (0.0-0.87); Eosinophils % 3.4 % (0.00-10.9); Hematocrit 36.2 VOL% (35.7-47.0); Hemoglobin 11.7 GM/DL (12.0-16.0); Immature Granulocytes % 0.7 %; Immature Granulocytes Absolute 0.06 #; Lymphocytes # 3.3 10*3/uL (1.4-4.0); Lymphocytes % 36.2 % (21.3-54.2); Mean Corpuscular HGB Conc 32.3 GM/DL (32-36); Mean Corpuscular Volume 95.5 FL (87-102); Mean Platelet Volume 8.6 FL (9.6-12.0); Monocytes % 7.8 % (1.7-12.7); Neutrophils % 51.6 % (38.7-73.9); Platelet Count 306 T/CUMM (130-400); Red Blood Count 3.79 MC/CUMM (3.8-5.5); Red Cell Distribution Width 13.9 % (9.3-17.3); White Blood Count 9.1 T/CUMM (4-12)
[2020-05-29 11:14] LABS: PT Patient Result 10.8 SECS (9.8-11.9)
[2020-05-29 11:30] LABS: Alanine Aminotransferase 21 U/L (13-56); Albumin 3.1 G/DL (3.4-5.0); Alkaline Phosphatase 122 U/L (45-117); Aspartate Amino Transferase 8 U/L (0-37); Bilirubin,Total < 0.39 MG/DL (0.2-1.0); Blood Urea Nitrogen 23 MG/DL (7-18); Calcium 9.4 MG/DL (8.5-10.1); Estimated Glom Filtration Rate 35 ML/MIN; Glucose 208 MG/DL (74-106); Osmolality,Calculated 282.8 MOS/KG (273-304)
[2020-05-29 11:46] LABS: Apearance,Urine CLEAR (Clear); Bilirubin,Urine Negative (Negative); Blood, Urine Negative (Negative); Glucose,Urine (UA) 150 mg/dL (Negative); Hyaline Casts,Urine 14 /LPF (0-3); Ketones,Urine Negative (Negative); Mucus,Urine Occasional /LPF (Occasional); Nitrite,Urine Negative (Negative); Protein,Urine Negative; RBC,Urine <1 /HPF (0-4); Squamous Epithelial Cell,Urine Occasional /HPF (0-10); Urine Color Yellow (Yellow); Urine Specific Gravity 1.019 (1.001-1.035); Urine Urobilinogen < 2.0 EU/DL (0.2-1.0); WBC,Urine 1 /HPF (0-6)
[2020-05-29 11:53] LABS: Barbiturates Screen,Urine Negative (Negative); Benzodiazepines Screen,Urine Negative (Negative); Cannabinoid Screen,Urine Negative (Negative); Opiate Screen,Urine Negative (Negative); Phencyclidine Screen,Urine Negative (Negative)
[2020-05-29] MEDS ORDERED: DEXTROSE 50% 25 GM/50 ML VIAL IV PRN ×2 (13:09)
[2020-05-29] MEDS ORDERED: ONDANSETRON 4 MG/2 ML VIAL IV PRN (13:09)
[2020-05-29] MEDS ORDERED: ALUMINUM/MAGNES/SIMETH MAX STR 30 ML UDCUP PO PRN (13:09)
[2020-05-29] MEDS ORDERED: ACETAMINOPHEN 325 MG TABLET PO PRN (13:09)
[2020-05-29] MEDS ORDERED: DOCUSATE SODIUM 100 MG CAPSULE PO PRN (13:09)
[2020-05-29] MEDS ORDERED: GLUCAGON 1 MG VIAL IM PRN (13:09)
[2020-05-29] MEDS: SODIUM CHLORIDE 0.9% 1,000 ML IV SCH (15:39)
[2020-05-29] MEDS: LACTULOSE 20 GM/30 ML UDCUP PO SCH ×2 (15:40→21:42)
[2020-05-29] MEDS: INSULIN LISPRO 100 UNIT/ML SUBCUT SCH (17:32)
[2020-05-29] MEDS ORDERED: ENOXAPARIN 40 MG/0.4 ML SYRINGE SUBCUT SCH (21:00)
[2020-05-29] MEDS: carvediloL 25 MG TABLET PO SCH (21:42)
[2020-05-29] MEDS: BRIMONIDINE/TIMOLOL OPH SOLN 5 ML BOTTLE BOTH EYES SCH (21:44)
[2020-05-30] MEDS: INSULIN LISPRO 100 UNIT/ML SUBCUT SCH ×3 (00:26→13:19)
[2020-05-30] MEDS: SODIUM CHLORIDE 0.9% 1,000 ML IV SCH ×2 (03:54→04:36)
[2020-05-30 06:20] LABS: Basophils # 0.1 10*3/uL (0.0-0.2); Basophils % 0.5 % (0.0-0.8); Eosinophils # 0.3 10*3/uL (0.0-0.87); Eosinophils % 3.1 % (0.00-10.9); Hematocrit 36.2 VOL% (35.7-47.0); Hemoglobin 11.5 GM/DL (12.0-16.0); Immature Granulocytes % 0.6 %; Immature Granulocytes Absolute 0.06 #; Lymphocytes # 3.1 10*3/uL (1.4-4.0); Lymphocytes % 29.1 % (21.3-54.2); Mean Corpuscular HGB Conc 31.8 GM/DL (32-36); Mean Corpuscular Volume 97.6 FL (87-102); Monocytes % 8.4 % (1.7-12.7); Neutrophils % 58.3 % (38.7-73.9); Platelet Count 307 T/CUMM (130-400); Red Blood Count 3.71 MC/CUMM (3.8-5.5); White Blood Count 10.6 T/CUMM (4-12)
[2020-05-30 07:05] LABS: Albumin 2.9 G/DL (3.4-5.0); Bilirubin,Total 0.4 MG/DL (0.2-1.0); Calcium 8.9 MG/DL (8.5-10.1); Osmolality,Calculated 278.5 MOS/KG (273-304); Total Protein 6.9 G/DL (6.4-8.3)
[2020-05-30] MEDS ORDERED: LIOTHYRONINE 5 MCG PO SCH (09:00)
[2020-05-30] MEDS ORDERED: PANTOPRAZOLE 40 MG TABLET PO SCH (09:00)
[2020-05-30] MEDS ORDERED: CETIRIZINE 10 MG TABLET PO SCH (09:00)
[2020-05-30] MEDS ORDERED: LOSARTAN 50 MG TABLET PO SCH (09:00)
[2020-05-30] MEDS: carvediloL 25 MG TABLET PO SCH (09:12)
[2020-05-30] MEDS: LACTULOSE 20 GM/30 ML UDCUP PO SCH (09:17)
[2020-05-30] MEDS: BRIMONIDINE/TIMOLOL OPH SOLN 5 ML BOTTLE BOTH EYES SCH (09:17)
[2020-05-30 11:15] VITALS: BP 109/69
[2020-06-05] MEDS ORDERED: ERGOCALCIFEROL 50,000 UNIT CAPSULE PO SCH (09:00)
== END 2020-05-30 13:52 | disposition home or self-care (01) ==
LOC: EDBD → EDUNIT# → N.EDINP 10:23 → N.ED 10:23 → N.EDINP 16:10 → N.TELEN 16:29
PROVIDERS: ADMIT Phlebology; ATTEND Phlebology

== ENCOUNTER 2021-11-28 18:28 | Inpatient (IN) ==
[2021-11-28] MEDS ORDERED: SODIUM CHLORIDE 0.9% 500 ML IV STA (19:46)
[2021-11-28 20:17] LABS: Basophils % 0.2 % (0.0-0.8); Hematocrit 47.4 VOL% (35.7-47.0); Immature Granulocytes % 0.7 %; Immature Granulocytes Absolute 0.09 #; Lymphocytes # 1.3 10*3/uL (1.4-4.0); Mean Corpuscular HGB Conc 31.6 GM/DL (32-36); Mean Corpuscular Volume 96.7 FL (87-102); Mean Platelet Volume 12.6 FL (9.6-12.0); Monocytes % 2.7 % (1.7-12.7); Neutrophils % 86.4 % (38.7-73.9); Platelet Count 282 T/CUMM (130-400); Red Cell Distribution Width 13.2 % (9.3-17.3); White Blood Count 13.4 T/CUMM (4-12)
[2021-11-28 20:19] LABS: Mucus,Urine Occasional /LPF (Occasional); Protein,Urine Trace MG/DL; RBC,Urine 3 /HPF (0-4); Squamous Epithelial Cell,Urine Occasional /HPF (0-10); Urine Appearance Clear (Clear); Urine Color Yellow (Yellow)
[2021-11-28 20:20] LABS: Bilirubin,Urine Small mg/dL (Negative); Blood, Urine Trace mg/dL (Negative); Glucose,Urine (UA) >1000 mg/dL (Negative); Ketones,Urine >160 mg/dL (Negative); Nitrite,Urine Negative (Negative); Urine Urobilinogen 0.2 EU/DL (<2.0)
[2021-11-28 20:49] LABS: INR 1.1; PT Patient Result 12.3 SECS (10.5-12.0)
[2021-11-28 21:09] LABS: Potassium 4.7 MMOL/L (3.5-5.1); Sodium 134 MMOL/L (136-145)
[2021-11-28 21:17] LABS: Alanine Aminotransferase 20 U/L (13-56); Albumin 3.5 G/DL (3.4-5.0); Aspartate Amino Transferase 15 U/L (0-37); Blood Urea Nitrogen 34 MG/DL (7-18); Calcium 9.7 MG/DL (8.5-10.1); Carbon Dioxide 12 MMOL/L (21-32); Estimated Glom Filtration Rate 21 ML/MIN; Osmolality,Calculated 313.2 MOS/KG (273-304); Total Protein 8.3 G/DL (6.4-8.2)
[2021-11-28 21:18] LABS: Alkaline Phosphatase 164 U/L (45-117)
[2021-11-28] MEDS ORDERED: SODIUM CHLORIDE 0.9% 2,000 ML IV STA (21:32)
[2021-11-28] MEDS ORDERED: INSULIN REGULAR 100 UNIT/ML IV STA (21:32)
[2021-11-28] MEDS ORDERED: INSULIN REGULAR DRIP 100 ML IV PRN (21:36)
[2021-11-28 21:48] LABS: ABG HCO3 11.5 MMOL/L (20-26); ABG Oxygen Saturation 97.4 % (95-100); ABG PCO2 21.7 MM HG (35-48); ABG PH 7.215 (7.35-7.45); ABG TCO2 7.8 MMOL/L (23-27)
[2021-11-28] MEDS ORDERED: SODIUM BICARB INJ 100 MEQ in STERILE WATER INJ 400 ML IV PRN (22:15)
[2021-11-28] MEDS ORDERED: SODIUM CHLORIDE 0.9% IV PRN (22:15)
[2021-11-28] MEDS ORDERED: SODIUM PHOSPHATE IV PRN (22:15)
[2021-11-28] MEDS ORDERED: DEXTROSE 10% 250 ML BAG IV PRN ×2 (22:15)
[2021-11-28] MEDS ORDERED: INSULIN REGULAR 100 UNIT/ML IV ONE (22:15)
[2021-11-28] MEDS ORDERED: MAGNESIUM SULF RIDER 4 GM/100 ML PREMIX IV PRN (22:16)
[2021-11-28] MEDS ORDERED: MAGNESIUM SULF RIDER 2 GM/50 ML PREMIX IV PRN (22:16)
[2021-11-28] MEDS ORDERED: INSULIN REGULAR DRIP 100 ML IV SCH (22:30)
[2021-11-28] MEDS: SODIUM CHLORIDE 0.9% 1,000 ML IV SCH (23:35)
[2021-11-29] MEDS ORDERED: hydrALAZINE 20 MG/1 ML VIAL IV PRN (01:03)
[2021-11-29] MEDS: SODIUM CHLORIDE 0.9% 1,000 ML IV SCH (01:54)
[2021-11-29 02:13] LABS: ABG Base Excess -18.5 MMOL/L (-2.5-2.5); ABG HCO3 11.1 MMOL/L (20-26); ABG Oxygen Saturation 96.5 % (95-100); ABG PCO2 22.3 MM HG (35-48); ABG TCO2 7.8 MMOL/L (23-27)
[2021-11-29 02:14] LABS: Calcium 8.2 MG/DL (8.5-10.1); Osmolality,Calculated 307.3 MOS/KG (273-304); Potassium 4.7 MMOL/L (3.5-5.1)
[2021-11-29 02:15] LABS: ABG PH 7.197 (7.35-7.45)
[2021-11-29] MEDS ORDERED: SODIUM CHLORIDE 0.9% 1,000 ML IV SCH (03:30)
[2021-11-29 04:30] LABS: Basophils % 0.1 % (0.0-0.8); Eosinophils % 0.2 % (0.00-10.9); Hematocrit 40.9 VOL% (35.7-47.0); Hemoglobin 12.7 GM/DL (12.0-16.0); Immature Granulocytes % 0.5 %; Immature Granulocytes Absolute 0.08 #; Lymphocytes # 2.2 10*3/uL (1.4-4.0); Lymphocytes % 14.3 % (21.3-54.2); Mean Corpuscular HGB Conc 31.1 GM/DL (32-36); Mean Corpuscular Volume 97.8 FL (87-102); Mean Platelet Volume 11.7 FL (9.6-12.0); Monocytes % 6.4 % (1.7-12.7); Neutrophils % 78.5 % (38.7-73.9); Platelet Count 170 T/CUMM (130-400); Red Blood Count 4.18 MC/CUMM (3.8-5.5); Red Cell Distribution Width 12.8 % (9.3-17.3)
[2021-11-29 04:54] LABS: Calcium 8.3 MG/DL (8.5-10.1); Osmolality,Calculated 303.4 MOS/KG (273-304); Potassium 4.9 MMOL/L (3.5-5.1)
[2021-11-29 05:23] LABS: ABG Base Excess -19.1 MMOL/L (-2.5-2.5); ABG HCO3 10.7 MMOL/L (20-26); ABG Oxygen Saturation 96.9 % (95-100); ABG TCO2 7.3 MMOL/L (23-27)
[2021-11-29 05:25] LABS: ABG PCO2 20.8 MM HG (35-48); ABG PH 7.194 (7.35-7.45)
[2021-11-29] MEDS ORDERED: SODIUM BICARBONATE 50 MEQ/50 ML VIAL IV ONE (06:13)
[2021-11-29 06:38] LABS: Glucose 777 MG/DL (74-106)
[2021-11-29] MEDS ORDERED: ENOXAPARIN 30 MG/0.3 ML SYRINGE SUBCUT SCH (09:00)
[2021-11-29 09:16] LABS: Calcium 8.5 MG/DL (8.5-10.1); Osmolality,Calculated 311.4 MOS/KG (273-304); Potassium 3.7 MMOL/L (3.5-5.1)
[2021-11-29 09:38] LABS: ABG Base Excess -11.3 MMOL/L (-2.5-2.5); ABG HCO3 15.6 MMOL/L (20-26); ABG Oxygen Saturation 95.9 % (95-100); ABG PCO2 28.8 MM HG (35-48); ABG PH 7.295 (7.35-7.45); ABG PO2 87.3 MM HG (80-95); ABG TCO2 12.4 MMOL/L (23-27)
[2021-11-29 13:25] LABS: Calcium 8.3 MG/DL (8.5-10.1); Osmolality,Calculated 311.1 MOS/KG (273-304); Potassium 4.4 MMOL/L (3.5-5.1)
[2021-11-29 15:22] LABS: ABG Base Excess -5.3 MMOL/L (-2.5-2.5); ABG Oxygen Saturation 95.8 % (95-100); ABG PCO2 37.3 MM HG (35-48); ABG PH 7.337 (7.35-7.45); ABG PO2 77.5 MM HG (80-95); ABG TCO2 17.8 MMOL/L (23-27)
[2021-11-29] MEDS: SODIUM CHLORIDE 0.45% 1,000 ML IV SCH (15:30)
[2021-11-29 17:09] LABS: Calcium 8.7 MG/DL (8.5-10.1); Osmolality,Calculated 307.9 MOS/KG (273-304); Potassium 4.2 MMOL/L (3.5-5.1)
[2021-11-29 19:12] LABS: Calcium 8.4 MG/DL (8.5-10.1); Potassium 3.5 MMOL/L (3.5-5.1)
[2021-11-29] MEDS: carvediloL 25 MG TABLET PO SCH (21:30)
[2021-11-29] MEDS ORDERED: DEXTROSE 5% NACL 0.45% 1,000 ML IV SCH (23:00)
[2021-11-30 01:45] LABS: Osmolality,Calculated 288.6 MOS/KG (273-304); Potassium 2.8 MMOL/L (3.5-5.1)
[2021-11-30 01:45] LABS: Basophils % 0.1 % (0.0-0.8); Eosinophils % 0.2 % (0.00-10.9); Hematocrit 43.2 VOL% (35.7-47.0); Hemoglobin 13.8 GM/DL (12.0-16.0); Immature Granulocytes % 0.5 %; Immature Granulocytes Absolute 0.07 #; Lymphocytes # 1.9 10*3/uL (1.4-4.0); Lymphocytes % 12.9 % (21.3-54.2); Mean Corpuscular HGB Conc 31.9 GM/DL (32-36); Mean Corpuscular Volume 96.9 FL (87-102); Mean Platelet Volume 12.2 FL (9.6-12.0); Neutrophils % 77.3 % (38.7-73.9); Platelet Count 88 T/CUMM (130-400); Red Blood Count 4.46 MC/CUMM (3.8-5.5); Red Cell Distribution Width 13.2 % (9.3-17.3); White Blood Count 14.6 T/CUMM (4-12)
[2021-11-30] MEDS: SODIUM CHLORIDE 0.45% 1,000 ML IV SCH ×5 (01:52→22:22)
[2021-11-30] MEDS: POTASSIUM CHLORIDE RIDER 10 MEQ/100 ML PREMIX IV PRN ×5 (02:07→06:32)
[2021-11-30] MEDS: INSULIN LISPRO 100 UNIT/ML SUBCUT SCH ×4 (06:03→23:37)
[2021-11-30 06:43] LABS: Calcium 8.6 MG/DL (8.5-10.1); Osmolality,Calculated 290.1 MOS/KG (273-304); Potassium 5.5 MMOL/L (3.5-5.1)
[2021-11-30] MEDS: LOSARTAN 50 MG TABLET PO SCH (09:13)
[2021-11-30] MEDS: carvediloL 25 MG TABLET PO SCH ×2 (09:13→20:32)
[2021-11-30] MEDS ORDERED: DEXTROSE 50% 25 GM/50 ML VIAL IV PRN ×2 (12:28→12:40)
[2021-11-30] MEDS ORDERED: GLUCAGON 1 MG VIAL IM PRN (12:40)
[2021-11-30 13:52] LABS: Calcium 8.6 MG/DL (8.5-10.1); Potassium 3.4 MMOL/L (3.5-5.1)
[2021-11-30] MEDS: ATORVASTATIN 40 MG TABLET PO SCH (20:31)
[2021-11-30] MEDS: INSULIN GLARGINE 100 UNIT/ML SUBCUT SCH (20:32)
[2021-11-30] MEDS: BRIMONIDINE/TIMOLOL OPH SOLN 5 ML BOTTLE BOTH EYES SCH (20:32)
[2021-12-01] MEDS: SODIUM CHLORIDE 0.45% 1,000 ML IV SCH ×4 (05:55→17:47)
[2021-12-01] MEDS: INSULIN LISPRO 100 UNIT/ML SUBCUT SCH ×3 (06:06→17:47)
[2021-12-01 07:01] LABS: Basophils % 0.4 % (0.0-0.8); Eosinophils # 0.2 10*3/uL (0.0-0.87); Eosinophils % 1.5 % (0.00-10.9); Hematocrit 34.8 VOL% (35.7-47.0); Hemoglobin 11.5 GM/DL (12.0-16.0); Immature Granulocytes % 0.6 %; Immature Granulocytes Absolute 0.07 #; Lymphocytes # 3.8 10*3/uL (1.4-4.0); Lymphocytes % 34.5 % (21.3-54.2); Mean Corpuscular Volume 93.3 FL (87-102); Mean Platelet Volume 10.8 FL (9.6-12.0); Monocytes % 7.7 % (1.7-12.7); NRBC # 0.02 10*3/uL; Neutrophils % 55.3 % (38.7-73.9); Platelet Count 204 T/CUMM (130-400); Red Blood Count 3.73 MC/CUMM (3.8-5.5); White Blood Count 11.1 T/CUMM (4-12)
[2021-12-01 07:20] LABS: Calcium 8.5 MG/DL (8.5-10.1); Osmolality,Calculated 282.1 MOS/KG (273-304)
[2021-12-01] MEDS: LOSARTAN 50 MG TABLET PO SCH (09:10)
[2021-12-01] MEDS: BRIMONIDINE/TIMOLOL OPH SOLN 5 ML BOTTLE BOTH EYES SCH ×2 (09:10→21:06)
[2021-12-01] MEDS: carvediloL 25 MG TABLET PO SCH ×2 (09:10→21:06)
[2021-12-01] MEDS ORDERED: POTASSIUM CHLORIDE 20 MEQ TABLET PO ONE (13:47)
[2021-12-01] MEDS: ENOXAPARIN 40 MG/0.4 ML SYRINGE SUBCUT SCH (14:11)
[2021-12-01] MEDS: ATORVASTATIN 40 MG TABLET PO SCH (21:06)
[2021-12-01] MEDS: INSULIN GLARGINE 100 UNIT/ML SUBCUT SCH (21:06)
[2021-12-02] MEDS: INSULIN LISPRO 100 UNIT/ML SUBCUT SCH ×4 (00:16→18:50)
[2021-12-02 05:27] LABS: Basophils # 0.1 10*3/uL (0.0-0.2); Basophils % 0.4 % (0.0-0.8); Eosinophils # 0.1 10*3/uL (0.0-0.87); Eosinophils % 1.2 % (0.00-10.9); Hematocrit 39.7 VOL% (35.7-47.0); Hemoglobin 13.1 GM/DL (12.0-16.0); Immature Granulocytes % 0.4 %; Immature Granulocytes Absolute 0.05 #; Lymphocytes # 4.2 10*3/uL (1.4-4.0); Lymphocytes % 36.4 % (21.3-54.2); Mean Corpuscular Volume 92.5 FL (87-102); Mean Platelet Volume 11.6 FL (9.6-12.0); Monocytes % 7.3 % (1.7-12.7); Neutrophils % 54.3 % (38.7-73.9); Platelet Count 212 T/CUMM (130-400); Red Blood Count 4.29 MC/CUMM (3.8-5.5); White Blood Count 11.5 T/CUMM (4-12)
[2021-12-02] MEDS: SODIUM CHLORIDE 0.45% 1,000 ML IV SCH ×2 (06:27→19:03)
[2021-12-02] MEDS: carvediloL 25 MG TABLET PO SCH ×2 (09:22→20:10)
[2021-12-02] MEDS: LOSARTAN 50 MG TABLET PO SCH (09:22)
[2021-12-02] MEDS: ENOXAPARIN 40 MG/0.4 ML SYRINGE SUBCUT SCH (13:01)
[2021-12-02] MEDS: BRIMONIDINE/TIMOLOL OPH SOLN 5 ML BOTTLE BOTH EYES SCH ×2 (15:01→20:15)
[2021-12-02] MEDS: ATORVASTATIN 40 MG TABLET PO SCH (20:10)
[2021-12-02] MEDS ORDERED: QUEtiapine 25 MG TABLET PO SCH (21:00)
[2021-12-02] MEDS: INSULIN GLARGINE 100 UNIT/ML SUBCUT SCH (21:36)
[2021-12-03] MEDS: INSULIN LISPRO 100 UNIT/ML SUBCUT SCH ×4 (00:01→17:20)
[2021-12-03] MEDS: LOSARTAN 50 MG TABLET PO SCH (08:46)
[2021-12-03] MEDS: carvediloL 25 MG TABLET PO SCH ×2 (08:47→21:19)
[2021-12-03] MEDS: BRIMONIDINE/TIMOLOL OPH SOLN 5 ML BOTTLE BOTH EYES SCH ×2 (08:48→21:20)
[2021-12-03] MEDS ORDERED: QUEtiapine 25 MG TABLET PO PRN (13:46)
[2021-12-03] MEDS: ENOXAPARIN 40 MG/0.4 ML SYRINGE SUBCUT SCH (15:01)
[2021-12-03] MEDS: ATORVASTATIN 40 MG TABLET PO SCH (21:19)
[2021-12-03] MEDS: INSULIN GLARGINE 100 UNIT/ML SUBCUT SCH (21:20)
[2021-12-04] MEDS: INSULIN LISPRO 100 UNIT/ML SUBCUT SCH ×4 (00:03→17:52)
[2021-12-04 05:43] LABS: Basophils % 0.4 % (0.0-0.8); Eosinophils # 0.2 10*3/uL (0.0-0.87); Eosinophils % 1.7 % (0.00-10.9); Hematocrit 39.1 VOL% (35.7-47.0); Hemoglobin 12.4 GM/DL (12.0-16.0); Immature Granulocytes % 1.1 %; Immature Granulocytes Absolute 0.12 #; Lymphocytes # 4.6 10*3/uL (1.4-4.0); Lymphocytes % 40.5 % (21.3-54.2); Mean Corpuscular HGB Conc 31.7 GM/DL (32-36); Mean Corpuscular Volume 94.7 FL (87-102); Mean Platelet Volume 10.6 FL (9.6-12.0); Monocytes % 8.7 % (1.7-12.7); Neutrophils % 47.6 % (38.7-73.9); Platelet Count 264 T/CUMM (130-400); Red Blood Count 4.13 MC/CUMM (3.8-5.5); Red Cell Distribution Width 13.4 % (9.3-17.3); White Blood Count 11.3 T/CUMM (4-12)
[2021-12-04 05:59] LABS: Calcium 9.6 MG/DL (8.5-10.1); Osmolality,Calculated 281.1 MOS/KG (273-304); Potassium 3.5 MMOL/L (3.5-5.1)
[2021-12-04] MEDS: BRIMONIDINE/TIMOLOL OPH SOLN 5 ML BOTTLE BOTH EYES SCH ×2 (08:27→21:19)
[2021-12-04] MEDS: LOSARTAN 50 MG TABLET PO SCH (08:27)
[2021-12-04] MEDS: carvediloL 25 MG TABLET PO SCH ×2 (08:27→21:19)
[2021-12-04] MEDS: ENOXAPARIN 40 MG/0.4 ML SYRINGE SUBCUT SCH (13:42)
[2021-12-04] MEDS: INSULIN GLARGINE 100 UNIT/ML SUBCUT SCH (21:19)
[2021-12-04] MEDS: ATORVASTATIN 40 MG TABLET PO SCH (21:19)
[2021-12-05] MEDS: INSULIN LISPRO 100 UNIT/ML SUBCUT SCH ×3 (00:21→12:15)
[2021-12-05 06:00] LABS: Calcium 9.5 MG/DL (8.5-10.1); Potassium 2.9 MMOL/L (3.5-5.1)
[2021-12-05 06:09] LABS: Osmolality,Calculated 275.4 MOS/KG (273-304)
[2021-12-05] MEDS ORDERED: POTASSIUM CHLORIDE 20 MEQ TABLET PO ONE (08:35)
[2021-12-05] MEDS: carvediloL 25 MG TABLET PO SCH (09:13)
[2021-12-05] MEDS: LOSARTAN 50 MG TABLET PO SCH (09:13)
[2021-12-05] MEDS: BRIMONIDINE/TIMOLOL OPH SOLN 5 ML BOTTLE BOTH EYES SCH (09:13)
[2021-12-05] MEDS: ENOXAPARIN 40 MG/0.4 ML SYRINGE SUBCUT SCH (14:40)
[2021-12-05 15:59] VITALS: BP 149/85
== END 2021-12-05 17:46 | disposition home health service (06) | DRG 637 ==
LOC: N.ED 18:28 → N.EDINP 22:15 → SUATTDRO 22:15 → N.CC 11-29 20:19 → N.EDINP 11-29 20:19 → N.5E 12-01 16:22
PROVIDERS: ADMIT Internal Medicine; ATTEND Hospitalist